=== PATIENT | female | born 1995 | race Two or more races ===

== ENCOUNTER 2018-07-11 12:05 | Emergency (ER) | payer MEDICAID ==
[~2018-07-11] VITALS: Ht 162.6 cm; Wt 69.9 kg
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
[2018-07-11] MEDS ORDERED: Acetaminophen 500mg (ES) tab ORAL ONE (12:30)
[2018-07-11] MEDS ORDERED: Methocarbamol 500mg tab ORAL ONE (12:30)
[2018-07-11 12:35] VITALS: BP 128/89
[2018-07-11] MEDS ORDERED: LIDOCAINE700 M1 TP (12:47)
[2018-07-11] MEDS ORDERED: ROBAXIN500 MG PO (12:47)
[2018-07-11] MEDS ORDERED: TYLENOL EXTRA500 MG ORAL (12:47)
[2018-07-11 16:10] VITALS: BP 128/89
--- NOTE | 2018-07-11 16:17 | Diagnostic Imaging Report ---
Indication: Back pain Comparison: None Findings: 2 views of the thoracic spine were obtained. Normal alignment is demonstrated. Vertebral body heights and intervertebral disc heights are normal. The posterior elements including the facets are unremarkable. Soft tissues are unremarkable. Impression: No acute injury appreciated.
== END 2018-07-11 16:11 | disposition home or self-care (01) ==
LOC: EMR 12:29
DX: M54.9 Dorsalgia, unspecified (principal); V43.62XA Car passenger injured in collision with other type car in traffic accident, initial encounter; Y92.410 Unspecified street and highway as the place of occurrence of the external cause
CPT/HCPCS: 72070; 81025; 99283